=== PATIENT | male | born 1985 | race Caucasian/White ===

== ENCOUNTER 2024-07-21 10:12 | Emergency (ER) | payer MEDICAID ==
[~2024-07-21] VITALS: Ht 188 cm; Wt 284.0 kg
[~2024-07-21 10:12] MED LIST: CIPR-264 PO
[2024-07-21 10:20] VITALS: O2SAT 98
[2024-07-21] MEDS ORDERED: DIPH28.33 TP (12:37)
[2024-07-21 13:20] VITALS: BP 150/72; PULSE 74; RESP 18; TEMP 36.9; O2SAT 98
== END 2024-07-21 13:20 | disposition home or self-care (01) ==
LOC: ER 10:12
DX: R21 Rash and other nonspecific skin eruption (principal); Z79.899 Other long term (current) drug therapy
CPT/HCPCS: 99282